=== PATIENT | female | born 1980 | race Caucasian/White ===

== ENCOUNTER 2017-10-20 22:39 | Emergency (ER) | payer OTHER ==
[~2017-10-20] VITALS: Ht 165.1 cm; Wt 84.1 kg
[2017-10-20 22:44] VITALS: BP 132/89
== END 2017-10-20 23:48 | disposition home or self-care (01) ==
LOC: ER 22:40 → EEVIPCON 22:40 → ER 23:48
DX: R42 Dizziness and giddiness (principal); H53.8 Other visual disturbances; R11.0 Nausea; Z98.51 Tubal ligation status; Z88.8 Allergy status to other drugs, medicaments and biological substances
CPT/HCPCS: 93005; 99283